=== PATIENT | male | born 1995 ===

== ENCOUNTER 2017-06-10 16:57 | Inpatient (IN) | payer OTHER, SELFPAY ==
[2017-06-10 19:48] VITALS: BMI 24.0
[2017-06-10] MEDS ORDERED: Acetaminophen/Codeine 30-300mg Tablet PO PRN (21:21)
[2017-06-10] MEDS ORDERED: Morphine 4 MG/ML VIAL SLOW IVP PRN (21:30)
[2017-06-10] MEDS ORDERED: Sodium Chloride 0.9% 1,000 ML IV SCH (21:45)
--- NOTE | 2017-06-10 23:31 | CON ---
DATE OF CONSULTATION: 06/10/2017 HISTORY OF PRESENT ILLNESS: Mr. Avery is a 21-year-old male, who I saw in his room on the [facility] this evening. He was transferred from [facility] this afternoon after playing golf and being hit on the left side of the temporal region of the head with a golf ball. The golf ball was traveling at h igh speed after somebody hit it with a golf club. The patient is alert and oriented to person, place , and time. There are no cranial nerve deficits. He answers all of my questions appropriately. He has no focal or motor sensory deficits in the upper or lower extremities. After being evaluated at [facility], a CT was completed that showed a left-sided temporal bone nondisplaced fracture with associat ed subdural hematoma measuring up to 8 mm in diameter. There is also possible left temporal contusio n. There is associated 5 mm acpd-oi-[id number] midline shift. He was transported from [facility] t [facility], where he was evaluated by me and the Neurosurgery team. The trauma team adm itted him to [facility]. Neurosurgery was consulted because of the findings on CT scan of the left tempora l nondisplaced fracture and subdural hematoma. There was no blurred vision, confusion, epistasis, or loss of consciousness reported by the patient, or memory loss. The patient was playing golf today a [employer] about 2:00 p.m. Minimal bleeding was noted and mild swelling was noted on the left t emporal region. ALLERGIES: The patient denies any allergies. CURRENT MEDICATIONS: No medications. IMMUNIZATIONS: Up-to-date. Tetanus vaccine was between 5 and 10 years ago. PAST MEDICAL HISTORY: No medical history reported. PAST SURGICAL HISTORY: No history of surgical procedures. SOCIAL HISTORY: He has never smoked tobacco. No reported alcohol use. No reported illicit drug use . He lives with a friend. The patient lives in an apartment. REVIEW OF SYSTEMS: The patient complains of left temporal region pain. He reports being hit by a go lf ball to the left side of the head. All other review of systems is negative, unless stated in the above HPI. PHYSICAL EXAMINATION: CONSTITUTIONAL: The patient is alert and oriented x4. He is following all my commands, sitting in h is bed in no acute distress. NECK: The patient has normal range of motion in the neck. No symptoms of cervical radiculopathy or cervical myelopathy. HEAD: Positive for left-sided temporal swelling, abrasion, and tenderness. Negative for left-sided temporal lacerations, 2 x 2 cm abrasion with scant blood. Mild soft tissue swelling seen. EYES: Pupils are equal and reactive to light. Extraocular muscles are intact. Sclerae are white an d nonicteric. CARDIOVASCULAR: The patient has regular rate and rhythm. Normal S1, S2 heart sounds. No distal cya nosis or clubbing noted. RESPIRATORY: The patient has bilateral symmetric chest rise. Appears to have no shortness of breath . SKIN: Positive for pallor. Warm and dry. Normal turgor. NEUROLOGIC: Cranial nerves II-XII are grossly intact. Speech is fluent. He answers my questions ap propriately. He has a GCS of 15. Sensory exam was positive for touch. Negative for any sensory or motor deficits in the upper extremity. The patient has normal speech, memory, gait, and posture. ASSESSMENT: Mr. Avery is a 21-year-old male status post golf ball to the left temporal region with a nondisplaced temporal bone fracture and an associated 8 mm in diameter subdural hematoma with possib le left temporal contusion and a 5 mm left to right midline shift. PLAN: From neurosurgical perspective, his cranial nerves are intact. We will make him n.p.o. overni ght and control his pain. We will get a repeat CT scan in the morning. We will follow his neuro sta tus q.2 hours overnight. If there are any neurologic changes and a GCS drop of greater than 2 or gre ater, please contact Neurosurgery immediately. If there are any further questions, please feel free to contact Neurosurgery.
[2017-06-11] MEDS: Acetaminophen/Codeine 30-300mg Tablet PO PRN ×2 (01:28→09:09)
[2017-06-11] MEDS ORDERED: Dextrose 5% in Water 1,000 ML IV PRN (01:52)
[2017-06-11] MEDS ORDERED: Dextrose 50% Abboject 50 ML SYRINGE SLOW IVP PRN (01:52)
[2017-06-11] MEDS ORDERED: Ondansetron HCl/PF 4 MG/2 ML Vial IVP PRN (01:52)
--- NOTE | 2017-06-11 04:55 | HP ---
DATE OF ADMISSION: 06/10/2017 ADMITTING PHYSICIAN: Levi Ramírez MD CONSULTING PHYSICIAN: Savannah Canela MD, Neurosurgery. HISTORY OF PRESENT ILLNESS: Mr. Avery is a 21-year-old male who apparently was out playing golf when he was struck on the side of the head with a golf ball. He went to an outside facility with left-si ded skull fracture as well as subdural and subarachnoid bleed were noted and he was subsequently mercer sferred to [place] for higher level of care. He was a direct admit to the intermediate care unit. He was evaluated by Trauma and Neurosurgery. He remains GCS of 15. He occasionally complains of h eadache. PAST MEDICAL HISTORY: None. PAST SURGICAL HISTORY: None. ALLERGIES: No known drug allergies. CURRENT MEDICATIONS: None. SOCIAL HISTORY: Denies alcohol, drug, or tobacco use. REVIEW OF SYSTEMS: Constitutional: The patient denies fever, chills, recent weight loss or general malaise. HEENT: Complains of headache. Denies blurred vision. Denies rhinorrhea or otorrhea. Den ies neck pain. Pulmonary: Denies shortness of breath or cough. Cardiovascular: Denies chest pain or palpitations. Abdomen: Denies abdominal pain, nausea, vomiting, or diarrhea. Extremities: Brian es any traumatic injuries to the extremities. Back: Denies pain. Skin: Denies rash or skin change s. PHYSICAL EXAMINATION: VITAL SIGNS: Temperature 99.5, pulse 61, respirations 16, O2 sat 96% room air, blood pressure 119/59 . CONSTITUTIONAL: A well-developed, well-nourished male lying in bed, in no acute distress, nontoxic a ppearing. HEENT: Abrasion over left temporal area. No complaints of posterior neck pain. Trachea midline. N o JVD. No uncontrolled bleeding. Pupils are equal, round, reactive to light. PULMONARY: Bilateral breath sounds clear. No respiratory distress. CARDIOVASCULAR: Regular rate and rhythm. Heart sounds normal. ABDOMEN: Soft, nontender, nondistended. Bowel sounds normal. EXTREMITIES: Moves all extremities well. Cap refill brisk. 2+ pulses. NEUROLOGIC: GCS of 15. Awake, alert, and oriented x3. No motor or sensory deficits. SKIN: Color within normal limits. Warm and dry. ASSESSMENT AND PLAN: 1. Blunt injury to head, struck by a golf ball. 2. Temporal bone fracture. 3. Subdural hematoma, traumatic. 4. Left temporal contusion. 5. Acute traumatic pain. PLAN: 1. Admit to [facility] by Trauma Services. 2. Consult to Neurosurgery, Dr. Canela. Discussed case with LAURA Mark. 3. N.p.o. and IV fluids. 4. Repeat CT scan. 5. Serial monitoring of GCS. The patient was reviewed with Dr. Ramírez who agrees with plan.
--- NOTE | 2017-06-11 08:01 | PRG ---
DATE OF SERVICE: 06/11/2017 I personally interviewed and examined the patient and agree with documentation of radha Sarkar PA-C 06/10/2017. 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 One of his friends as lining up to take his second shot. The ball came off his friends club and immediatel y struck him in the left side of the head in the temporal bone. He was brought to the emergency depa rtment outside where CT examination of the brain showed a temporal bone fracture, temporal lobe contu mary jo and subdural hematoma. He was transferred for further care. I am seeing Mr. Avery in his hospital room this morning. He is in the Intermediate Care Unit. He is awake as I enter the room. He answers questions appropriately and complains of headache. His crani al nerves are intact. There is no lateralizing motor or sensory deficits and alternating rapid motio ns are performed rapidly and smoothly. CT examination of the brain shows slightly decrease in size of the subdural hematoma. The contusion is stable. There is mild mass effect. The rest of the brain looks like a normal 21-year-old. Due to the excellent neurological condition of Mr. Avery, the slight improvement in the subdural mikel lele and the stability of the contusion, I think that we may be able to treat him without surgical in tervention. 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 I would avoid free water for t he next 2 weeks. He can add extra salt to his food. We will follow up with a CT scan in 10 days and another one in a month. He can go as early as today as long as he is safe for his activities of iris ly living.
[2017-06-11 08:05] LABS: #Lymphocytes 1.4 thou/uL (1.20-3.40); #Neutrophils 11.7 thou/uL (1.40-6.50); %Basophils 0.2 % (0.0-1.0); %Eosinophils 0.2 % (0.0-10.0); %Monocytes 7.1 % (0.0-10.0); %Neutrophils 82.5 % (42.0-75.0); Hemoglobin 14.2 g/dL (14.0-18.0); Mean Corpuscular HGB CONC 33.4 g/dL (32.0-36.0); Mean Corpuscular Hemoglobin 29.9 pg (27.0-31.0); Mean Corpuscular Volume 89.7 fl (80.0-94.0); Platelet Count 281 thou/uL (130-400); RBC Distribution Width 11.6 % (11.5-14.5); Red Blood Cell (RBC) Count 4.75 mill/uL (4.70-6.10); White Blood Cell (WBC) Count 14.2 thou/uL (4.8-10.8)
[2017-06-11 08:24] LABS: Anion Gap 9 mmol/L (10-20); BUN (Urea Nitrogen) 14 mg/dL (8.9-20.6); Calc. Creatinine Clearance 134 mL/min (70-130); Calcium 9.4 mg/dL (7.8-10.44); Carbon Dioxide 30 mmol/L (22-29); Chloride 101 mmol/L (98-107); Estimated GFR-MDRD Greater than 90; Glucose 119 mg/dL (70-105); Magnesium 2.2 mg/dL (1.6-2.6); Phosphorus 3.5 mg/dL (2.3-4.7); Potassium 4.1 mmol/L (3.5-5.1); Sodium 136 mmol/L (136-145)
--- NOTE | 2017-06-11 08:35 | CT ---
PRELIMINARY REPORT/[facility]/EMERGENTY AFTER-HOURS PROCEDURE Addendum created by Ward Singer MD on 06/11/2017 2:30 AM Central Time ([place] & [place]) CORRECTION: There is likely 2-3 mm of rightward midline shift. Findings discussed with Arlene Benton NP at time of interpretation. Initial Report created on 06/11/2017 2:19 AM Central Time ([place] & [place]) CT Head Without Intravenous Contrast EXAM DATE/TIME: Exam ordered 06/11/2017 1:57 AM CLINICAL HISTORY: 21 years old, male; Condition or disease; Other: Sdh; Patient HX: Eval for sdh; Additional info: Pt s canned at a different facility, no prior images available TECHNIQUE: Axial computed tomography images of the head/brain without intravenous contrast. COMPARISON: No relevant prior studies available. FINDINGS: Brain: Than acute left frontotemporal extra-axial hematoma spanning approximately 8 cm in long axis a nd 6 mm in maximum thickness, likely subdural. 2.3 cm acute left temporal intraparenchymal hematoma a ssociated focal brain edema. No significant white matter disease. Midline shift: No midline shift. Ventricles: Unremarkable. No ventriculomegaly. Bones/joints: Acute left temporal skull fracture. Soft tissues: Left temporal scalp hematoma. Sinuses: Unremarkable as visualized. No acute sinusitis. Mastoid air cells: Unremarkable as visualized. No mastoid effusion. IMPRESSION: 1. Acute left-sided intracranial hemorrhages as above. 2. Acute left temporal skull fracture. Thank you for allowing us to participate in the care of your patient. Dictated and Authenticated by: Ward Singer MD 06/11/2017 2:19 AM Central Time ([place] & [place]) FINAL REPORT CT BRAIN WITHOUT CONTRAST: Date: 06/11/17 HISTORY: Subdural hematoma. COMPARISON: None available. FINDINGS/IMPRESSION: Findings and impression are concordant with the preliminary report by Dina. POS: [facility]
[2017-06-11] MEDS ORDERED: levETIRAcetam 500 MG TAB PO SCH (09:00)
[2017-06-11] MEDS ORDERED: Pantoprazole 40 MG VIAL IVP SCH (09:00)
[2017-06-11 11:37] VITALS: TEMP 99.3
[2017-06-11] MEDS ORDERED: Acetaminophen 500 MG TAB PO SCH (12:00)
--- NOTE | 2017-06-11 12:21 | DIS ---
DATE OF ADMISSION: 06/10/2017 DATE OF DISCHARGE: 06/11/2017 ADMITTING PHYSICIAN: Dr. Levi Ramírez DISCHARGING PHYSICIAN: Dr. Emery Pearce CONSULTANTS: Dr. Canela with Neurosurgery. ADMITTING DIAGNOSES: 1. Blunt injury to the head struck by a golf ball. 2. Left temporal bone fracture. 3. Left traumatic subdural hematoma. 4. Left traumatic hemorrhagic temporal contusion. DIAGNOSES ON DISCHARGE: 1. Blunt injury to the head struck by a golf ball. 2. Left temporal bone fracture. 3. Left traumatic subdural hematoma. 4. Left traumatic hemorrhagic temporal contusion. HISTORY AND HOSPITAL COURSE: This is a 21-year-old young man who was struck on the left side of his head by a golf ball. The patient suffered an acute traumatic brain injury. CT scan of the brain revealed a small left convexity subdural hematoma as well as an ____ left tempor al hemorrhagic cerebral contusion and a left temporal bone fracture. The patient was admitted to the Trauma Service. He was seen in consultation by Neurosurgery who recommended nonoperative management . Today, the patient is awake and alert. His [place] coma scale is 15. He reports a slight headache w hich is controlled with oral analgesics. He denies any nausea. He tolerated oral intake. Repeat head CT scan showed a slightly improved left convexity subdural hematoma and stable left tempo ral hemorrhagic contusion. He clearly has no mass effects on examination. VITAL SIGNS: His vital signs today included blood pressure 127/58, pulse 62, respiratory rate 18, te mperature is 99.8 degrees Fahrenheit, oxygen saturation was 100% on room air. HEENT: Pupils are equal, round, reactive to light and accommodation. Extraocular muscles are intact bilaterally. He has no sclerae icterus present. HEART: Reveals regular rate and rhythm, no murmurs or gallops auscultated. LUNGS: Clear to auscultation bilaterally. Breathing regular and unlabored. ABDOMEN: Soft, nontender, nondistended. Bowel sounds in all 4 quadrants appear normoactive. NEUROLOGIC: Reveals no focal deficits present. He has remained with a [place] coma scale of [address] [facility] this hospitalization. The patient ambulates with minimum difficulty. His pain is now currently controlled with oral analge sics. LABORATORY FINDINGS: Today includes a CBC with 14,200 white blood cells, hemoglobin and hematocrit s table at 14.2 and 42.6 respectively. platelet count is 281,000. Metabolic profile today; sodium 136 , potassium 4.1, chloride is 101, bicarbonate 30, BUN 14, creatinine 0.92, glucose is 119. The patient has been evaluated by Neurosurgery today and has been deemed fit for discharge. From a Trauma Surgical standpoint, the patient has maximized hospital benefit and will be discharged home t [place] with the following instructions: 1. He follows up with the Neurosurgery Clinic in 10 days with a repeat CT scan of the brain. 2. He is instructed to avoid contact sports or any activity that may predispose him to another bump in the head. 3. He is advised not to return to work until he has been released by Neurosurgery with his next clin ic appointment. 4. He is to minimize free water intake and in fact advised to add extra salt to his food until he downs s been released by Neurosurgery. 5. He requires no further follow up from the Trauma Surgery standpoint except for as needed. 6. He may take Tylenol extra strength as needed for headache and avoid using any nonsteroidal anti-i nflammatory agents for pain control. The patient indicates understanding of information given. I have answered his questions.
[2017-06-11 12:55] VITALS: BP 127/64
== END 2017-06-11 12:52 | disposition home or self-care (01) | DRG 84 ==
LOC: IMCU/EMU 18:20
PROVIDERS: ADMIT Specialist; ATTEND Specialist
DX: S06.5X0A Traumatic subdural hemorrhage without loss of consciousness, initial encounter (principal); S06.6X9A Traumatic subarachnoid hemorrhage with loss of consciousness of unspecified duration, initial encounter; F17.210 Nicotine dependence, cigarettes, uncomplicated; R40.2410 Glasgow coma scale score 13-15, unspecified time; S02.19XA Other fracture of base of skull, initial encounter for closed fracture; W21.04XA Struck by golf ball, initial encounter
CPT/HCPCS: 36415; 36416; 70450; 80048; 83735; 84100; 85025; C9113; G8978-GP-CH; G8979-GP-CH; G8980-GP-CH; G8987-GO-CH; G8988-GO-CH; G8989-GO-CH